=== PATIENT | female | born 1980 | race Caucasian/White ===

== ENCOUNTER 2018-02-28 21:11 | Emergency (ER) | payer OTHER ==
[~2018-02-28] VITALS: Ht 165.1 cm; Wt 70.8 kg
[~2018-02-28 21:11] MED LIST: ACETAMINOPHEN-1 EAC1; ACTIQ 400 MCG400 MCG; ALBUTEROL2.5 MG/31; APAP500 PO; AZITHROMYCIN; CEPHALEXIN 500500 M2 PO; CLEOCIN HCL150 MG PO; CLEOCIN100 MG VAG; COLACE100 MG OR; DARVOCET A5001 EAC1 PO; DILAUDID2 M1; FENTANYL; FENUGREEK500 MG PO; FLAGYL500 MG; FLAGYL500 MG OR; GLUCOPHAGE500 MG PO; GLUMETZA500; IBUPROFEN 600600 M1; IBUPROFEN 600600 M1 PO; LABETALOL 100100 MG PO; LANOLIN56 GM; LOPRESSOR; METFORMIN ER 5500 M1 PO; NORCO 5-325 TA1 EACH PO; NORTRIPTYLINE H10 M1; PENICILLIN VK500 M1 PO; PERCOCET 5-3251 EACH PO; POTASSIUM20; PRENATAL COMPL1 EACH PO; PRENATAL PO; PRENATAL VITAMIN OR; PROCARDIA XL30 MG PO; SYMAX PO; SYMAX SL; ZOFRAN 4 MG ORAL4 MG PO; ZPAK PO
[2018-02-28 21:56] LABS: ABSOLUTE BASOPHILS 0.1 thou/uL (0.0-0.2); ABSOLUTE EOSINOPHILS 0.2 thou/uL (0.0-0.7); ABSOLUTE LYMPHOCYTES 2.9 thou/uL (0.8-5.3); ABSOLUTE MONOCYTES 0.8 thou/uL (0.0-1.2); ABSOLUTE NEUTROPHILS 4.7 thou/uL (1.6-8.1); BASOPHILS 1.2 %; EOSINOPHILS 2.8 %; HEMATOCRIT 43.4 % (37.0-47.0); HEMOGLOBIN 14.8 gm/dL (12.0-15.0); LYMPHOCYTES 33.3 %; MCH 31.8 pg (26.0-34.0); MCHC 34.1 g/dL (28.0-37.0); MCV 93.5 fL (80.0-100.0); MONOCYTES 8.9 %; MPV 7.8 fl. (7.2-11.1); NUCLEATED RBCS 0 /100WBC; PLATELET COUNT* 210 thou/uL (150-400); POLYS 53.8 %; RBC 4.64 mil/uL (4.20-5.00); RDW-CV 13.2 % (10.5-14.5); WBC 8.7 thou/uL (4.0-11.0)
[2018-02-28 22:01] LABS: CREATININE 0.9 mg/dL (0.6-1.3); POTASSIUM 3.5 mmol/L (3.5-5.1)
[2018-02-28 22:06] LABS: ALBUMIN 3.5 g/dL (3.4-5.0); TOTAL PROTEIN 6.1 g/dL (6.4-8.2)
[2018-02-28 22:06] LABS: URINE BILIRUBIN NEGATIVE (Negative); URINE BLOOD NEGATIVE (Negative); URINE CLARITY CLEAR; URINE COLOR YELLOW; URINE GLUCOSE-RANDOM NEGATIVE (Negative); URINE KETONES TRACE (Negative); URINE LEUKOCYTES-REFLEX TRACE (Negative); URINE NITRITE-REFLEX NEGATIVE (Negative); URINE PROTEIN NEGATIVE (Negative); URINE SPECIFIC GRAVITY >= 1.030 (1.005-1.030)
[2018-02-28 22:14] LABS: MUCUS 4-6 Moderate strn/LPF (None Seen); SQUAMOUS 0-3 Few /LPF (0-3)
[2018-02-28 22:15] LABS: CRYSTALS None Seen /LPF (None Seen); URINE RBC None Seen /HPF (0-2); URINE WBC-REFLEX 6-15 Few /HPF (0-5)
[2018-02-28 22:16] LABS: BACTERIA-REFLEX 1-9 Few /HPF (None Seen); CASTS None Seen /LPF (None Seen)
[2018-02-28] MEDS ORDERED: DOXYCYCLINE MO100 M1 PO (23:31)
[2018-02-28 23:44] VITALS: BP 107/47
== END 2018-02-28 23:47 | disposition home or self-care (01) ==
LOC: M.ERS 21:11
PROVIDERS: Physician Assistant
DX: N89.8 Other specified noninflammatory disorders of vagina (principal); N83.201 Unspecified ovarian cyst, right side; E11.9 Type 2 diabetes mellitus without complications; Z88.5 Allergy status to narcotic agent; Z88.8 Allergy status to other drugs, medicaments and biological substances

== ENCOUNTER 2021-01-16 00:19 | Emergency (ER) | payer OTHER ==
[~2021-01-16] VITALS: Ht 165.1 cm; Wt 84.8 kg
--- NOTE | ~2021-01-16 | EMS ---
[place] [address] EMS Patient Care Report Name: CARLIE VILLAFUERTE [facility] [id number] Admission: 01/16/21 Attend Phys: Discharge: 01/16/21 Date of : [birth year] Report #: [id number] THIS REPORT FOR: //name// Report Transmitted: 01/16/2021 06:41 EMS Care Summary [facility] [employer] [facility] Incident [id number] @ 01/15/2021 23:17 Incident Location [address] [place] [address] Patient CARLIE VILLAFUERTE Female, 40 Years 1980 Patient Address [address] [place] [address] Patient History Hypertension (HTN),Pancreatitis,Ovarian Cysts, Patient Allergies Codeine, Patient Medications Phentermine, Vitamin D, Chief Complaint Abdominal Pain Disposition Transported No Lights/[place] Dispatch Reason Sick Person Transported To [facility] Narrative Med 1 was dispatched for mutual aid EMS call for [facility]. Initial Vitals @00:01P: 85,SpO2: 98, [place] [address] EMS Patient Care Report Name: CARLIE VILLAFUERTE [facility] [id number] Admission: 01/16/21 Attend Phys: Discharge: 01/16/21 Date of : [birth year] Report #: [id number] @23:56P: 87,SpO2: 100, @23:53P: 88,SpO2: 99, @23:47P: 87,BP: 127/93,SpO2: 100, @23:51P: 84,SpO2: 100, @00:06P: 80,SpO2: 98, @00:03R: 18,GCS: 15,Temp: 97.4F,Glucose: 83,SpO2: 98, Assessments @23:52MENTAL:No Abnormalities,SKIN:No Abnormalities,HEENT:Head/Face: No Abnormalities,Neck/Airway: No Abnormalities,LUNG SOUNDS:General: No Abnormalities,ABDOMEN:General: No Abnormalities,PELVIS//GI:EXTREMITIES:Left Leg: Abnormal Sensation,Right Leg: Abnormal Sensation,Left Arm: No Abnormalities,Right Arm: No Abnormalities,PULSE:NEURO:No Abnormalities, Impression Abdominal Pain Procedures @00:04Saline Lock 10cc (20 ga) Site: Antecubital-RightResponse: UnchangedSucceeded@00:05Fentanyl - 100 Micrograms (mcg) - Intravenous (IV)Response: Improved Timeline 23:17,Call Received 23:17,Dispatched 23:19,En Route 23:35,On Scene 23:36,At Patient 23:47,BP: 127/93 M,PULSE: 87,RR: R,SPO2: 100 [place],ETCO2: ,BG: ,PAIN: ,GCS: , 23:51,BP: / M,PULSE: 84,RR: R,SPO2: 100 Ox,ETCO2: ,BG: ,PAIN: ,GCS: , 23:52,Depart Scene 23:53,BP: / M,PULSE: 88,RR: R,SPO2: 99 Ox,ETCO2: ,BG: ,PAIN: ,GCS: , 23:56,BP: / M,PULSE: 87,RR: R,SPO2: 100 Ox,ETCO2: ,BG: ,PAIN: ,GCS: , 00:01,BP: / M,PULSE: 85,RR: R,SPO2: 98 Ox,ETCO2: ,BG: ,PAIN: ,GCS: , 00:03,BP: / M,PULSE: ,RR: 18 R,SPO2: 98 Ox,ETCO2: ,B,PAIN: ,GCS: 15, 00:04,Saline Lock 10cc 20 ga Site: Antecubital-Right,Response: UnchangedSucceeded, 00:05,Fentanyl - 100 Micrograms (mcg) - Intravenous (IV),Response: Improved 00:06,BP: / M,PULSE: 80,RR: R,SPO2: 98 Ox,ETCO2: ,BG: ,PAIN: ,GCS: , 00:10,At Destination 00:43,Call Closed 00:43,In District Disclaimer v1.1 Copyright 2020 [employer] This EMS Care Summary contains data elements from [place] [address] EMS Patient Care Report Name: CARLIE VILLAFUERTE CROW Room: [facility] Oly#: [id number] Admission: 01/16/21 Attend Phys: Discharge: 01/16/21 Date of : [birth year] Report #: [id number] (which may be displayed differently). It is designed to provide pertinent information for the following purposes: continuity of care, clinical quality, and state data reporting. The complete legal record is available to ED staff and administrators of the receiving hospital in [facility]'s Patient Tracker. All data is provided "as is."
--- NOTE | ~2021-01-16 | EMS ---
[facility] [address] [place] [address] EMS Patient Care Report Name: CARLIE VILLAFUERTE [facility] [id number] Admission: 01/16/21 Attend Phys: Discharge: 01/16/21 Date of : [birth year] Report #: [id number] THIS REPORT FOR: //name// Report Transmitted: 01/18/2021 11:36 EMS Care Summary [employer] [facility] Incident [id number] @ 01/15/2021 23:17 Incident Location [address] [place] [address] Patient CARLIE VILLAFUERTE Female, 40 Years 1980 Patient Address [address] [place] [address] Patient History Hypertension (HTN),Pancreatitis,Ovarian Cysts, Patient Allergies Codeine, Patient Medications Phentermine, Vitamin D, Chief Complaint Abdominal Pain Disposition Transported No Lights/[place] Dispatch Reason Sick Person Transported To [facility] Narrative Med 1 was dispatched for mutual aid EMS call for Keyla Fernández for a [age] year-old female c/o abdominal pain after sexual intercourse. Upon arrival, [facility] had an engine crew on scene that had initiated patient care. They had performed a 12 lead EKG it shown NSR. Patient reports that she has been seeing [facility] [address] [place] [address] EMS Patient Care Report Name: CARLIE VILLAFUERTE [facility]#: [id number] Admission: 01/16/21 Attend Phys: Discharge: 01/16/21 Date of : [birth year] Report #: [id number] an Internal Medicine Doctor for her abdominal pain and several other health issues. Patient rated her pain a 10/10. Patient's vitals were within normal range. Patient was assisted to the stretcher and secured via seatbelts and moved to the ambulance without incident. In the ambulance, patient was placed on the school lunch monitor and vitals signs were obtained. Saline lock was established with a 20 GA IV catheter. Med 1 went en route to [facility]. Patient was given 100 mcg of Fentanyl via IV. Patient was monitored through out transport. Hospital report was given via radio with no questions or orders received or requested. Med 1 arrived at the hospital. Patient was moved into the ER via stretcher without incident. Patient care was transferred to ER staff in room 11. Med 1 returned back into service. [id number] [facility]ook Initial Vitals @00:01P: 85,SpO2: 98, @23:56P: 87,SpO2: 100, @23:53P: 88,SpO2: 99, @23:47P: 87,BP: 127/93,SpO2: 100, @23:51P: 84,SpO2: 100, @00:06P: 80,SpO2: 98, @00:03R: 18,GCS: 15,Temp: 97.4F,Glucose: 83,SpO2: 98, Assessments @23:52MENTAL:No Abnormalities,SKIN:No Abnormalities,HEENT:Head/Face: No Abnormalities,Neck/Airway: No Abnormalities,LUNG SOUNDS:General: No Abnormalities,ABDOMEN:General: No Abnormalities,PELVIS//GI:EXTREMITIES:Left Leg: Abnormal Sensation,Right Leg: Abnormal Sensation,Left Arm: No Abnormalities,Right Arm: No Abnormalities,PULSE:NEURO:No Abnormalities, Impression Abdominal Pain Procedures @00:04Saline Lock 10cc (20 ga) Site: Antecubital-RightResponse: UnchangedSucceeded@00:05Fentanyl - 100 Micrograms (mcg) - Intravenous (IV)Response: Improved Timeline 23:17,Call Received 23:17,[place] [address] EMS Patient Care Report Name: CARLIE VILLAFUERTE [facility]#: [id number] Admission: 01/16/21 Attend Phys: Discharge: 01/16/21 Date of : [birth year] Report #: [id number] 23:19,En Route 23:35,On Scene 23:36,At Patient 23:47,BP: 127/93 M,PULSE: 87,RR: R,SPO2: 100 Ox,ETCO2: ,BG: ,PAIN: ,GCS: , 23:51,BP: / M,PULSE: 84,RR: R,SPO2: 100 Ox,ETCO2: ,BG: ,PAIN: ,GCS: , 23:52,Depart Scene 23:53,BP: / M,PULSE: 88,RR: R,SPO2: 99 Ox,ETCO2: ,BG: ,PAIN: ,GCS: , 23:56,BP: / M,PULSE: 87,RR: R,SPO2: 100 Ox,ETCO2: ,BG: ,PAIN: ,GCS: , 00:01,BP: / M,PULSE: 85,RR: R,SPO2: 98 Ox,ETCO2: ,BG: ,PAIN: ,GCS: , 00:03,BP: / M,PULSE: ,RR: 18 R,SPO2: 98 Ox,ETCO2: ,B,PAIN: ,GCS: 15, 00:04,Saline Lock 10cc 20 ga Site: Antecubital-Right,Response: UnchangedSucceeded, 00:05,Fentanyl - 100 Micrograms (mcg) - Intravenous (IV),Response: Improved 00:06,BP: / M,PULSE: 80,RR: R,SPO2: 98 Ox,ETCO2: ,BG: ,PAIN: ,GCS: , 00:10,At Destination 00:43,Call Closed 00:43,In District Disclaimer v1.1 Copyright 2020 [employer] This EMS Care Summary contains data elements from the applicable legal record (which may be displayed differently). It is designed to provide pertinent information for the following purposes: continuity of care, clinical quality, and state data reporting. The complete legal record is available to ED staff and administrators of the receiving hospital in [facility]'s Patient Tracker. All data is provided "as is."
[~2021-01-16 00:19] MED LIST changes: +DOXYCYCLINE MO100 M1 PO
[2021-01-16] MEDS ORDERED: ADIPEX-P37.5 MG PO (01:15)
[2021-01-16] MEDS ORDERED: D3-200050 MCG PO (01:16)
[2021-01-16 01:20] LABS: ABSOLUTE BASOPHILS 0.1 thou/uL (0.0-0.2); ABSOLUTE EOSINOPHILS 0.1 thou/uL (0.0-0.7); ABSOLUTE LYMPHOCYTES 1.7 thou/uL (0.8-5.3); ABSOLUTE NEUTROPHILS 9.8 thou/uL (1.6-8.1); BASOPHILS 0.6 %; EOSINOPHILS 0.8 %; HEMATOCRIT 44.8 % (37.0-47.0); HEMOGLOBIN 15.3 gm/dL (12.0-15.0); LYMPHOCYTES 13.6 %; MCH 30.7 pg (26.0-34.0); MCHC 34.1 g/dL (28.0-37.0); MCV 89.9 fL (80.0-100.0); MONOCYTES 7.7 %; MPV 7.5 fl. (7.2-11.1); NUCLEATED RBCS 0 /100WBC; PLATELET COUNT* 241 thou/uL (150-400); POLYS 77.3 %; RBC 4.98 mil/uL (4.20-5.00); RDW-CV 13.5 % (10.5-14.5); WBC 12.6 thou/uL (4.0-11.0)
[2021-01-16 01:28] LABS: CALCIUM 8.8 mg/dL (8.5-10.1); CREATININE 0.7 mg/dL (0.6-1.3); POTASSIUM 3.5 mmol/L (3.5-5.1)
[2021-01-16 01:32] LABS: ALBUMIN 3.7 g/dL (3.4-5.0); MAGNESIUM 2.1 mg/dL (1.8-2.4); TOTAL PROTEIN 6.8 g/dL (6.4-8.2)
[2021-01-16] MEDS ORDERED: HYDROCODON-ACE1 EAC8 PO (02:26)
[2021-01-16 03:20] VITALS: BP 117/62
--- NOTE | 2021-01-18 10:38 | EKG ---
[place] [address] ELECTROCARDIOGRAM REPORT Name: CARLIE VILLAFUERTE Room: [facility]#: [id number] Admission: 01/16/21 Attend Phys: Discharge: 01/16/21 Date of : [birth year] Date of Service: 01/16/21 0106 Report #: [id number] THIS REPORT FOR: //name// [facility] ED Test Date: 2021-01-16 Test Time: 01:06:49 Pat Name: CARLIE VILLAFUERTE Department: Room: Gender: F Senior Quality Control Inspector: [facility] : 1980 Requested By: Martha Dan Order Number: [id number] MD: Luis Alfredo Roy Measurements Intervals [place] Rate: 74 P: 73 WI: 142 QRS: 104 QRSD: 110 T: 48 QT: 409 QTc: 454 Interpretive Statements Sinus rhythm Consider right ventricular hypertrophy No previous ECG available for comparison Electronically Signed On 01-18-2021 10:38:09 CDT by Luis Alfredo Roy [email or web address] <ELECTRONICALLY SIGNED> By: Luis Alfredo Roy MD, [facility] 01/18/21 1038 010 010 Luis Alfredo Roy MD, FAC /EPI
== END 2021-01-16 03:20 | disposition home or self-care (01) ==
LOC: M.ERS 00:19
PROVIDERS: Emergency Medicine
DX: R10.31 Right lower quadrant pain (principal); R10.32 Left lower quadrant pain; E11.9 Type 2 diabetes mellitus without complications; Z90.49 Acquired absence of other specified parts of digestive tract; Z88.5 Allergy status to narcotic agent